=== PATIENT | male | born 1950 | race African-American/Black ===

== ENCOUNTER 2019-01-22 18:40 | Emergency (ER) | payer MEDICARE, MEDICAID ==
[~2019-01-22] VITALS: Ht 182.9 cm; Wt 82.0 kg
[~2019-01-22 18:40] MED LIST: BP MED
[2019-01-22] MEDS ORDERED: SODIUM CHLORIDE 0.9% 1,000 ML IV ONE (20:21)
[2019-01-22 20:32] LABS: BASOPHILS % 0.8 % (0.0-2.0); EOSINOPHILS % 2.1 % (0.0-5.0); HEMATOCRIT. 39.3 % (42.0-52.0); HEMOGLOBIN. 13.7 g/dL (14.0-18.0); LYMPHOCYTES % 47.2 % (20.0-50.0); MEAN CORPUSCULAR HEMOGLOBIN 32.3 pg (28.0-32.0); MEAN CORPUSCULAR VOLUME 92.5 fL (80.0-94.0); MEAN PLATELET VOLUME 9.6 fl (7.4-10.4); MONOCYTES % 5.3 % (2.0-8.0); NEUTROPHILS % 44.6 % (40.0-76.0); PLATELET 245 x1000/uL (130-400); RED BLOOD CELL COUNT 4.25 mill/uL (4.7-6.1); RED CELL DISTRIBUTION WIDTH 16.2 % (11.6-14.6)
[2019-01-22 20:38] LABS: CHLORIDE 106 mEq/L (98-107)
[2019-01-22 20:42] LABS: ETHANOL BLOOD 184 mg/dL
[2019-01-23 01:32] VITALS: BP 149/71
== END 2019-01-23 01:36 | disposition home or self-care (01) ==
LOC: ER 18:40
DX: F41.9 Anxiety disorder, unspecified (principal); F10.129 Alcohol abuse with intoxication, unspecified; Y90.6 Blood alcohol level of 120-199 mg/100 ml; R03.0 Elevated blood-pressure reading, without diagnosis of hypertension; F17.210 Nicotine dependence, cigarettes, uncomplicated
CPT/HCPCS: 36415; 80053; 80320; 84132; 85025; 99284; J7030; G0480

== ENCOUNTER 2020-08-10 19:22 | Emergency (ER) | payer MEDICARE ==
[~2020-08-10] VITALS: Ht 182.9 cm; Wt 73.0 kg
[~2020-08-10 19:22] MED LIST changes: -BP MED; +CHLO25CA10 MT; +FOLI-43 MT; +MIDO2.5T MT; +MULT-1146 MT; +THIA100T72 MT
[2020-08-10] MEDS ORDERED: KETOROLAC 30MG/ML VIAL IV STA (20:07)
[2020-08-10] MEDS ORDERED: ONDANSETRON HCL 4MG/2ML INJ IV STA (20:07)
[2020-08-10] MEDS ORDERED: SODIUM CHLORIDE 0.9% 1,000 ML IV ONE (20:15)
[2020-08-10 21:58] LABS: BASOPHILS % 0.3 % (0.0-2.0); HEMATOCRIT. 34.1 % (42.0-52.0); HEMOGLOBIN. 11.9 g/dL (14.0-18.0); MEAN CORPUSCULAR HEMOGLOBIN 34.6 pg (28.0-32.0); MEAN CORPUSCULAR VOLUME 98.9 fL (80.0-94.0); MEAN PLATELET VOLUME 9.6 fl (7.4-10.4); MONOCYTES % 8.1 % (2.0-8.0); NEUTROPHILS % 48.6 % (40.0-76.0); PLATELET 170 x1000/uL (130-400); RED BLOOD CELL COUNT 3.44 mill/uL (4.7-6.1); RED CELL DISTRIBUTION WIDTH 16.1 % (11.6-14.6)
[2020-08-10 22:07] LABS: CHLORIDE 112 mEq/L (98-107)
[2020-08-10 22:09] LABS: INR 0.9
[2020-08-11] MEDS ORDERED: MAGNESIUM CITRATE 300ML SOLUTION PO ONE
[2020-08-11 01:07] LABS: CLARITY URINE CLEAR (CLEAR); COLOR URINE YELLOW (YELLOW); KETONES URINE NEGATIVE (NEGATIVE); LEUKOCYTE ESTERASE URINE NEGATIVE (NEGATIVE); NITRITE URINE NEGATIVE (NEGATIVE); OCCULT BLOOD URINE 1+ (NEGATIVE); PROTEIN URINE NEGATIVE (NEGATIVE); SPECIFIC GRAVITY URINE 1.023 (1.005-1.030); UROBILINOGEN URINE 0.2 E.U./dL (0.2-1.0)
[2020-08-11 12:00] VITALS: BP 134/65
== END 2020-08-10 23:38 | disposition home or self-care (01) ==
LOC: ER 19:22
DX: R10.13 Epigastric pain (principal); K59.00 Constipation, unspecified; Z86.73 Personal history of transient ischemic attack (TIA), and cerebral infarction without residual deficits
CPT/HCPCS: 36415; 74022; 80053; 83690; 83880; 84484; 85025; 85610; 96361; 96374; 96375; 99285; J1885; J2405; J7030

== ENCOUNTER 2020-08-27 14:55 | Emergency (ER) | payer MEDICARE ==
[~2020-08-27] VITALS: Ht 182.9 cm; Wt 77.0 kg
[2020-08-27] MEDS ORDERED: SODIUM CHLORIDE 0.9% 1,000 ML IV ONE (16:00)
[2020-08-27] MEDS ORDERED: MORPHINE SULFATE 4 MG/ML CPJ (NOT FOR IM USE) IV STA (16:16)
[2020-08-27] MEDS ORDERED: ONDANSETRON HCL 4MG/2ML INJ IV STA (16:16)
[2020-08-27 16:47] LABS: CLARITY URINE CLEAR (CLEAR); COLOR URINE YELLOW (YELLOW); KETONES URINE NEGATIVE (NEGATIVE); LEUKOCYTE ESTERASE URINE NEGATIVE (NEGATIVE); NITRITE URINE NEGATIVE (NEGATIVE); OCCULT BLOOD URINE NEGATIVE (NEGATIVE); PROTEIN URINE NEGATIVE (NEGATIVE); SPECIFIC GRAVITY URINE 1.018 (1.005-1.030); UROBILINOGEN URINE 0.2 E.U./dL (0.2-1.0)
[2020-08-27 16:51] LABS: BASOPHILS % 0.3 % (0.0-2.0); EOSINOPHILS % 0.9 % (0.0-5.0); HEMOGLOBIN. 13.6 g/dL (14.0-18.0); MEAN CORPUSCULAR HEMOGLOBIN 34.1 pg (28.0-32.0); MEAN PLATELET VOLUME 9.7 fl (7.4-10.4); MONOCYTES % 5.7 % (2.0-8.0); NEUTROPHILS % 62.1 % (40.0-76.0); PLATELET 196 x1000/uL (130-400)
[2020-08-27 16:52] LABS: CHLORIDE 108 mEq/L (98-107)
[2020-08-27 16:54] LABS: PROTHROMBIN TIME 10.2 sec (9.6-11.0)
[2020-08-28 09:26] VITALS: BP 148/74
== END 2020-08-28 10:15 | disposition home or self-care (01) ==
LOC: ER 14:55
DX: K80.20 Calculus of gallbladder without cholecystitis without obstruction (principal); I10 Essential (primary) hypertension; K57.90 Diverticulosis of intestine, part unspecified, without perforation or abscess without bleeding
CPT/HCPCS: 36415; 71045; 74176; 76705; 80053; 81003; 83690; 84484; 85025; 85610; 87086; 93005; 96361; 96374; 96375; 99285; J2270; J2405; J7030

== ENCOUNTER 2020-11-17 08:19 | Inpatient (IN) | payer MEDICAID, MEDICARE ==
[~2020-11-17] VITALS: Ht 170.2 cm; Wt 78.9 kg
[~2020-11-17 08:19] MED LIST changes: -CHLO25CA10 MT
[2020-11-17] MEDS ORDERED: SODIUM CHLORIDE 0.9% 1,000 ML IV ONE (08:45)
[2020-11-17 09:27] LABS: BASOPHILS % 0.5 % (0.0-2.0); EOSINOPHILS % 0.6 % (0.0-5.0); HEMATOCRIT. 41.4 % (42.0-52.0); HEMOGLOBIN. 14.2 g/dL (14.0-18.0); LYMPHOCYTES % 25.4 % (20.0-50.0); MEAN CORPUSCULAR HEMOGLOBIN 32.8 pg (28.0-32.0); MEAN CORPUSCULAR VOLUME 95.6 fL (80.0-94.0); MEAN PLATELET VOLUME 9.6 fl (7.4-10.4); MONOCYTES % 7.5 % (2.0-8.0); PLATELET 191 x1000/uL (130-400); RED BLOOD CELL COUNT 4.33 mill/uL (4.7-6.1); RED CELL DISTRIBUTION WIDTH 16.1 % (11.6-14.6)
[2020-11-17 09:37] LABS: CHLORIDE 111 mEq/L (98-107)
[2020-11-17 09:44] LABS: PROTHROMBIN TIME 10.3 sec (9.6-11.0)
[2020-11-17] MEDS ORDERED: ONDANSETRON HCL 4MG/2ML INJ IV PRN (13:30)
[2020-11-17] MEDS: AMLODIPINE 10MG TABLET PO SCH (14:05)
[2020-11-17] MEDS: ASPIRIN 81MG TABLET PO SCH (15:19)
[2020-11-17 15:23] LABS: T4 FREE 1.03 ng/dL (0.76-1.46)
[2020-11-17] MEDS: LOSARTAN POTASSIUM 25 MG TABLET PO SCH (17:31)
[2020-11-17] MEDS ORDERED: LACTULOSE 20G/30ML UDC PO NR (19:15)
[2020-11-18 03:45] VITALS: BP_SYST 131; BP_SYST 134; BP_DIAS 77; BP_DIAS 83
[2020-11-18 08:00] VITALS: BP 131/54
[2020-11-18] MEDS: AMLODIPINE 10MG TABLET PO SCH (09:10)
[2020-11-18] MEDS: LOSARTAN POTASSIUM 25 MG TABLET PO SCH (09:10)
[2020-11-18] MEDS: ASPIRIN 81MG TABLET PO SCH (09:10)
[2020-11-18 12:00] VITALS: BP 143/78
[2020-11-18 16:00] VITALS: BP 131/56
[2020-11-18 18:06] LABS: BASOPHILS % 0.3 % (0.0-2.0); EOSINOPHILS % 1.7 % (0.0-5.0); HEMATOCRIT. 37.4 % (42.0-52.0); HEMOGLOBIN. 12.8 g/dL (14.0-18.0); LYMPHOCYTES % 30.3 % (20.0-50.0); MEAN CORPUSCULAR HEMOGLOBIN 32.8 pg (28.0-32.0); MEAN CORPUSCULAR VOLUME 95.7 fL (80.0-94.0); MEAN PLATELET VOLUME 10.3 fl (7.4-10.4); MONOCYTES % 9.3 % (2.0-8.0); NEUTROPHILS % 58.4 % (40.0-76.0); PLATELET 178 x1000/uL (130-400); RED BLOOD CELL COUNT 3.91 mill/uL (4.7-6.1); RED CELL DISTRIBUTION WIDTH 16.4 % (11.6-14.6)
[2020-11-18 18:16] LABS: CHLORIDE 106 mEq/L (98-107)
[2020-11-18 20:00] VITALS: BP 145/82
[2020-11-19] VITALS: BP 140/79
[2020-11-19 04:00] VITALS: BP 155/60
[2020-11-19 08:00] VITALS: BP 104/68
[2020-11-19] MEDS: ASPIRIN 81MG TABLET PO SCH (09:05)
[2020-11-19] MEDS: ACETAMINOPHEN 325MG TABLET PO PRN ×2 (09:06→09:08)
[2020-11-19] MEDS: LOSARTAN POTASSIUM 25 MG TABLET PO SCH (09:06)
[2020-11-19] MEDS: AMLODIPINE 10MG TABLET PO SCH (09:07)
[2020-11-19 12:00] VITALS: BP 130/70
[2020-11-19 16:00] VITALS: BP 114/73
[2020-11-19 20:00] VITALS: BP 123/67
[2020-11-20 04:00] VITALS: BP 122/72
[2020-11-20 08:00] VITALS: BP 108/59
[2020-11-20] MEDS: LOSARTAN POTASSIUM 25 MG TABLET PO SCH (08:58)
[2020-11-20] MEDS: AMLODIPINE 10MG TABLET PO SCH (08:58)
[2020-11-20] MEDS: ASPIRIN 81MG TABLET PO SCH (09:05)
[2020-11-20 16:27] VITALS: BP 108/59
== END 2020-11-20 16:16 | DRG 74 ==
LOC: ER 08:19 → MICUSO 12:15 → EDBEDREQ 12:22 → 5WST 11-18 02:59
PROVIDERS: ADMIT Internal Medicine; ATTEND Internal Medicine
DX: G90.8 Other disorders of autonomic nervous system (principal); I42.9 Cardiomyopathy, unspecified; I50.22 Chronic systolic (congestive) heart failure; E78.5 Hyperlipidemia, unspecified; E86.0 Dehydration; E87.8 Other disorders of electrolyte and fluid balance, not elsewhere classified; F17.210 Nicotine dependence, cigarettes, uncomplicated; I11.0 Hypertensive heart disease with heart failure; I27.20 Pulmonary hypertension, unspecified; I35.9 Nonrheumatic aortic valve disorder, unspecified; F10.11 Alcohol abuse, in remission; Z20.822 Contact with and (suspected) exposure to COVID-19; I95.1 Orthostatic hypotension; K57.90 Diverticulosis of intestine, part unspecified, without perforation or abscess without bleeding; K80.20 Calculus of gallbladder without cholecystitis without obstruction; Z82.49 Family history of ischemic heart disease and other diseases of the circulatory system; Z86.73 Personal history of transient ischemic attack (TIA), and cerebral infarction without residual deficits; Z87.440 Personal history of urinary (tract) infections; Z79.899 Other long term (current) drug therapy
CPT/HCPCS: 36415; 71045; 80048; 80053; 83735; 83880; 84439; 84443; 84484; 85025; 86850; 86900; 87426; 93005; 93306; 97116; 97162; 97530; 99285; C1893; J2405; J7030; J7042